=== PATIENT | female | born 1985 | race African-American/Black ===

== ENCOUNTER 2016-10-18 16:23 | Emergency (ER) | payer OTHER ==
[~2016-10-18] VITALS: Ht 175.3 cm; Wt 75.0 kg
[2016-10-18 16:44] VITALS: BP 134/94; PULSE 92; RESP 15; TEMP 98.2; O2SAT 98
[2016-10-18] MEDS ORDERED: DIPH1TAB4 PO (16:48)
--- NOTE | 2016-10-18 17:48 | PD ---
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 The source patient reports being hepatitis see positive and denies HIV status. The patient reports being up-to-date on her tetanus vaccination. Denies paresthesias, loss of sensation, decreased range of motion, decreased strength to the affected finger. Denies fever, chills, nausea, vomiting. Has not taken any medications to alleviate her symptoms. Has applied pressure to the cut to control bleeding. No known allergies. Denies significant past medical history. No other Modifying factors or associated signs and symptoms. PFSH Past Medical History Medical History: Denies Significant Hx Diminished Hearing: No ?: Not Past Surgical History Surgical History: No Previous Surgery Social History Alcohol Use: No Tobacco Use: No Substance Use: No Allergies-Medications (Allergen,Severity, Reaction): Coded Allergies: No Known Allergies (Unverified , 10/18/16) Reported Meds & Prescriptions Reported Meds & Active Scripts Active Ibuprofen 800 Mg Tab 800 Mg PO Q6HR PRN Reported Sleep Aid (Diphenhydramine HCl (Sleep)) 25 Mg Tab 1 Tab PO HS Review of Systems Except as stated in HPI: all other systems reviewed are Neg Physical Exam Narrative GENERAL: Well-nourished, well-developed female patient, in no acute distress SKIN: Warm and dry. Distal aspect of the left thumb with small cut/abrasion that is less than half a centimeter in diameter; areas without erythema, edema; minimal amount of bright red drainage. Left thumb is with full range of motion , sensory intact, less than 3 second cap refill, good opposition. Left upper extremity is supple and non-tense with 2+ radial pulse and sensory intact. HEAD: Atraumatic. Normocephalic. EYES: Pupils equal and round. No scleral icterus. No injection or drainage. ENT: Mucosa pink and moist. Airway patent. NECK: Trachea midline. CARDIOVASCULAR: Regular rate. RESPIRATORY: No accessory muscle use. GASTROINTESTINAL: Flat. MUSCULOSKELETAL: No obvious deformities. No clubbing. No cyanosis. No edema. NEUROLOGICAL: Awake and alert. Oriented 3. No obvious cranial nerve deficits. Motor grossly within normal limits. Normal speech. PSYCHIATRIC: Appropriate mood and affect; insight and judgment normal. 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 She has a small abrasion to the tip of her left thumb. Wound care provided in the ER. Patient is up-to-date on tetanus vaccination. Blood exposure protocol initiated. Instructed patient to follow up with blood exposure protocol. Ibuprofen prescribed for home. Patient verbalizes understanding and agreement with treatment plan. Patient is medically cleared and stable for discharge. Discussed reasons to return to the emergency department. Instructed patient to follow up with primary care provider. Patient agrees with treatment plan. The patients vital signs are stable and the patient is stable for outpatient follow- up and treatment. Patient discharged home, stable and in no acute distress. 1804: Received a phone call from the charge nurse and the source patient's rapid screen is negative. Diagnosis Primary Impression: Exposure to blood or body fluid Additional Impression: Abrasion Referrals: Employ [employer] Primary Care Physician Patient Instructions: Abrasion (ED), Acute Wound Care (ED), General Instructions Departure Forms: Tests/Procedures, Work Release Enter return to work date: Oct 19, 2016 Additional Instructions: Follow blood exposure protocol instructions Follow-up with employee med Follow-up with primary care Return to emergency department for worsening of symptoms Med/Other Pt SpecificInfo: Prescription(s) given Scripts Ibuprofen 800 Mg Tpx626 Mg PO Q6HR PRN (PAIN) #30 TAB Ref 0 Prov:Joann Miller 10/18/16 Disposition: 01 DISCHARGE HOME Condition: Stable Joann Miller Oct 18, 2016 17:48
[2016-10-18] MEDS ORDERED: IBUP800T23 PO (17:53)
[2016-10-19 16:43] LABS: HEPATITIS B SURFACE ANTIBODY 38.9 mIU/mL
== END 2016-10-18 18:44 | disposition home or self-care (01) ==
LOC: NEPB 16:23
DX: S61.012A Laceration without foreign body of left thumb without damage to nail, initial encounter (principal); W45.8XXA Other foreign body or object entering through skin, initial encounter; Y93.89 Activity, other specified; Y99.0 Civilian activity done for income or pay; Z77.21 Contact with and (suspected) exposure to potentially hazardous body fluids
CPT/HCPCS: 86317; 86703; 86803; 99283